=== PATIENT | female | born 1985 | race Caucasian/White ===

== ENCOUNTER 2017-05-02 10:14 | Emergency (ER) | payer OTHER ==
--- NOTE | 2017-05-02 12:20 | UC ---
Syed Ervin Angela, scribed for Eileen Doe MD on 05/02/17 at 1207 . Complaint Female HPI - HPI Summary HPI Summary: This pt is a 31 y/o female presenting to [facility] c/o vaginal discharge x3 days (on Saturday). She describes a malodorous brownish-combs discharge. She states her symptoms began a couple of days after she had sex. Pt notes some abd discomfort but denies pain. She denies dysuria, urinary frequency, urinary urgency, back pain, vulva irritation. Pt has not had sex since her symptoms began on Saturday. Pt is and has not had any new partners; not concerned for STIs. She notes her usual menstrual cycles are usually 7 days. Pt states her last period was short, lasting only 4 days. She denies currently. Pt has 2 children and had normal deliveries. She states she was in [place] for 2.5 weeks and recently returned 2 days ago; drove back to [place] yesterday. - History Of Current Complaint Chief Complaint: [facility] Stated Complaint: VAGINAL DISCHARGE Time Seen by Provider: 05/02/17 12:00 Hx Obtained From: Patient Hx Last Menstrual Period: 04/23/17 ?: No Onset/Duration: Lasting Days Timing: Lasting Days Aggravating Factor(s): Nothing Alleviating Factor(s): Nothing Associated Signs And Symptoms: Positive: Vaginal Discharge. Negative: Back Pain , Vaginal Bleeding/Discharge, Nausea, Vomiting(# Of Episodes =), Genital Swelling, Genital Blisters - Allergies/Home Medications Allergies/Adverse Reactions: Allergies Allergy/AdvReac Type Severity Reaction Status Date / Time No Known Allergies Allergy Verified 05/02/17 10:53 PMH/Surg Hx/FS Hx/Imm Hx Previously Healthy: Yes Other Endocrine History: DENIES: diabetes Other Cardiovascular History: DENIES: HTN - Surgical History Surgical History: None - Family History Known Family History: Positive: Hypertension - grandmother, Other - parents living and healthy - Social History 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 Alcohol Use: None Substance Use Type: None Smoking Status (MU): Never Smoked Tobacco Have You Smoked in the Last Year: No - Immunization History Most Recent Influenza Vaccination: 05/27/15 Most Recent Tetanus Shot: 09/12/15 Most Recent Pneumonia Vaccination: none Review of Systems Constitutional: Negative Skin: Negative Eyes: Negative ENT: Negative Respiratory: Negative Cardiovascular: Negative Gastrointestinal: Negative Genitourinary: Vaginal/Penile Discharge - malodorous brownish-grayish, Other - NEGATIVE: dysuria, frequency, urgency, pain Motor: Negative Musculoskeletal: Negative Neurological: Negative Psychological: Negative Is Patient Immunocompromised?: No All Other Systems Reviewed And Are Negative: Yes Physical Exam Triage Information Reviewed: Yes Appearance: Well-Appearing - fatigued Vital Signs: Initial Vital Signs Temp 99.6 F 05/02/17 10:54 Pulse 87 05/02/17 10:54 Resp 16 05/02/17 10:54 BP 120/66 05/02/17 10:54 Pulse Ox 100 05/02/17 10:54 Eye Exam: Normal Neck exam: Normal Neck: Positive: Supple, Nontender, No Lymphadenopathy Respiratory: Positive: Lungs clear, Normal breath sounds Cardiovascular: Positive: RRR, No Murmur Abdomen Description: Positive: Nontender, No Organomegaly, Soft, Other: - discussed; self collected BD Affirm swab in preference to exam. Has no concerns about possible STI's due to stable relationship. Neurological Exam: Normal Psychological Exam: Normal Complaint Female Dx - Course Course Of Treatment: Pt is a 31 y/o female who presents with vaginal discharge x3 days (since Saturday), described as a malodorous brownish-combs discharge. Pt medications reviewed this visit. Flagyl for suspected bacterial vaginosis. - Differential Dx/Diagnosis Provider Diagnoses: bacterial vaginosis Discharge - Discharge Plan Condition: Stable Disposition: HOME Prescriptions: Metronidazole [Flagyl 500 MG TAB] 500 mg PO BID #14 tab Additional Instructions: use flagyl (metronidazole ) for treatment of suspected bacterial vaginosis. Please begin treatment, although the swab will be used to confirm the infection. Ensure that you abstain from alcohol during this time. Increasing probiotics can help to restore a normal vaginal bacterial elisabeth. The documentation as recorded by the Syed del angel Angela accurately reflects the service I personally performed and the decisions made by me, Eileen Doe MD.
[2017-05-02 12:49] VITALS: BP 124/82
--- NOTE | 2017-05-03 17:28 | UC ---
Progress - Progress Note Progress Note: notify pt no BV stop flagyl recheck if still symptomatic
== END 2017-05-02 12:48 | disposition home or self-care (01) ==
LOC: UCEAST 10:14
DX: N89.8 Other specified noninflammatory disorders of vagina (principal)
CPT/HCPCS: 87480; 87510; 99212; G0463